=== PATIENT | female | born 1945 | race Caucasian/White ===

== ENCOUNTER → 2017-01-02 | Outpatient (CLI) | payer OTHER, MEDICARE | LOC: BMCIMAGING 08:25 | DX: Z12.31 Encounter for screening mammogram for malignant neoplasm of breast (principal) | CPT/HCPCS: G0202 ==

== ENCOUNTER → 2017-02-26 | Outpatient (CLI) | payer OTHER, MEDICARE | LOC: FIMAGING 09:27 | PROVIDERS: ATTEND Internal Medicine | DX: G31.9 Degenerative disease of nervous system, unspecified (principal); I67.82 Cerebral ischemia ==

== ENCOUNTER → 2017-08-13 | Outpatient (CLI) | payer OTHER, MEDICARE | LOC: BMCIMAGING 16:40 | PROVIDERS: ATTEND Internal Medicine Rheumatology | DX: M25.532 Pain in left wrist (principal); M25.531 Pain in right wrist ==

== ENCOUNTER → 2017-10-15 | Outpatient (CLI) | payer OTHER, MEDICARE | LOC: BMCIMAGING 13:59 | PROVIDERS: ATTEND Family Medicine | DX: M79.604 Pain in right leg (principal); M79.89 Other specified soft tissue disorders ==

== ENCOUNTER → 2018-01-20 | Outpatient (CLI) | payer OTHER, MEDICARE | LOC: BMCIMAGING 08:17 | PROVIDERS: ATTEND Internal Medicine | DX: Z12.31 Encounter for screening mammogram for malignant neoplasm of breast (principal) ==

== ENCOUNTER 2018-08-19 12:25 | Emergency (ER) | payer OTHER, MEDICARE ==
--- NOTE | 2018-08-19 13:03 | EDPHY ---
H & P Time Seen by Provider: 08/19/18 12:41 HPI/ROS: CLINICAL IMPRESSION: Left knee contusion ASSESSMENT/PLAN: 73-year-old female presents to the emergency department 6 days after falling on the left knee [place] cruise [place]. She has a closed large blister on the anterior aspect of the knee but no bleeding or otherwise open wound. Distal neurovascular exam is intact. No radiologic finding to suggest acute tibial plateau fracture, patellar flexure. Patient's blister was drained by request, JOESPH bandage placed, right treatment discussed, recommend orthopedic follow-up, warning signs return to ED sooner outlined and discharge. DIFFERENTIAL DX: Differential diagnosis includes but not limited to acute fracture, ligamentous injury, soft tissue contusion ED PROCEDURES: Procedure: Splint placement. A Joesph bandage splint to the left knee was applied by landscape technician, supervised by myself. After application of the splint I returned and re-examined the patient. The splint was adequately immobilizing the joint and distal to the splint the patient's circulation and sensation was intact. ED COURSE: CHIEF COMPLAINT: Left knee and lower leg pain HPI: This is a 73-year-old female with history of osteoarthritis who presents to the emergency department with acute left knee and lower leg pain after tripping and falling on a cruise ship 6 days ago. Patient reports she went down a small step , stepped onto an uneven surface, and fell onto the lateral aspect of the left knee and twisted the lower leg. She saw the cruise physician, apparently had an x-ray of the knee and was told nothing was wrong. It was recommended that she disembark on the [place] [facility] which she and her declined. She reports she has been icing, using naproxen, and elevating the leg for the last 36 hr. They returned home on Saturday night. She has had a previous right total knee replacement by Dr. Villegas but has not yet contacted his office because he is retiring. She reports persistent swelling to the leg. She is not on anticoagulation therapy. No reported loss of sensation to the foot or toes. She is hoping to fly to [place] on Saturday. PAST MEDICAL HISTORY: Prior right total knee replacement, hypertension, cataracts Pertinent Past Surgical History: Right total knee Social History: Nonsmoker, not anticoagulated REVIEW OF SYSTEMS: All other systems negative Constitutional: No fever, no chills Musculoskeletal: No deformity, + joint pain Skin: No rashes, color change or open wounds. Blister to left knee Neurological: No sensory loss or weakness. PHYSICAL EXAM: General Appearance: Alert, oriented, appropriate for age, cooperative, NAD, well hydrated, non-toxic appearing, VSS, no hypoxia. Neurological: Alert and oriented x 3, normal sensation and strength of extremities Skin: Warm, dry, no rashes, no nodules on palpation. Subcutaneous bruising to left knee and entire lower leg. large blister to left anterior knee. Musculoskeletal: Tender to palpation along entire left knee and lower leg. Patient is refusing to bend the knee secondary to pain. neg anterior drawer. Unable to assess Grayson test. Distal neurovascular exam intact. No open wounds MEDICAL DECISION MAKING: Patient was seen independently.Secondary supervising physician at time of evaluation was Dr. Paris. Diagnosis: Left knee contusion . New, requires workup Summary: See assessment and plan for summary of ED visit Independent visualization of images, tracing, or specimens yes. Decision to obtain medical records or history from someone other than the patient patient's Patient Progress stable . Smoking Status: Never smoked Constitutional: Initial Vital Signs Temperature (C) 36.6 C 08/19/18 12:28 Heart Rate 87 08/19/18 12:28 Respiratory Rate 18 08/19/18 12:28 Blood Pressure 185/94 H 08/19/18 12:28 O2 Sat (%) 93 08/19/18 12:28 O2 Delivery Mode Room Air Allergies/Adverse Reactions: codeine [Codeine] Allergy (Unknown, Verified 08/19/18 12:27) Home Medications: Medication Instructions Recorded Hydrochlorothiazide [HCTZ (*)] 25 mg PO DAILY 03/05/15 Acetaminophen [Tylenol ES 500 mg 1,000 mg PO DAILY PRN 01/27/16 (*)] Acyclovir [Zovirax 400 mg (*)] 400 mg PO DAILY PRN 01/27/16 Cyanocobalamin [Vitamin B12 (*)] 1,000 mcg PO DAILY 01/27/16 Escitalopram Oxalate [Lexapro 10 10 mg PO DAILY 01/27/16 MG] Estradiol [Estradiol 1 MG (*)] 1 mg PO DAILY 01/27/16 Fenofibrate [Tricor 145 mg (*)] 145 mg PO DAILY 01/27/16 Losartan Potassium [Cozaar 50 mg 50 mg PO DAILY 01/27/16 (*)] Potassium Cl [Klor-Con 20 meq (*)] 40 meq PO DAILY 01/27/16 MDM/Departure - [facility] Imaging Results: Imaging Impressions Knee X-Ray 08/19/18 12:56 Impression: 1. Tiny ossific density projecting medial to the proximal fibular metaphysis may represent an avulsion fragment of unknown chronicity. 2. Mild osteoarthrosis of the knee. Tibia/Fibula X-Ray 08/19/18 12:56 Impression: 1. Tiny ossific density projecting medial to the proximal fibular metaphysis may represent an avulsion fragment of unknown chronicity. 2. Mild osteoarthrosis of the knee. Imaging: I viewed and interpreted images myself - Depart Disposition: Home, Routine, Self-Care Clinical Impression: Left anterior knee pain Condition: Good Instructions: Knee Pain (ED) Additional Instructions: DISCHARGE INSTRUCTIONS FROM YOUR DOCTOR Thank you for visiting our emergency department today. Please keep in mind that discharge from the emergency department does not mean that there is nothing wrong - it simply means that we have not identified an emergency condition that requires further evaluation or treatment in the hospital. You should always plan to follow up with primary care for re-evaluation of your condition in the next 2-3 days. If you have been referred to a specialist, please call as soon as possible (today or tomorrow) to schedule your follow up appointment at the appropriate time. X-rays of her knee were read by the radiologist with a possible small chip avulsion fracture off the proximal fibula but otherwise unremarkable studies. Your blister was drained today and your leg was placed in an Joesph bandage. Please follow-up with your primary orthopedic provider. Return to the emergency department for worsening pain, inability to ambulate, loss of sensation to the foot or toes, fever or any other concern. People present with illnesses and injuries in different ways, and it is always possible that we have missed something. You may always return for re-evaluation if symptoms worsen or if they are not improving or if you develop new/different symptoms. Again, thank you for choosing our emergency department. We hope that you feel better. Referrals: Joi Cassidy MD [Primary Care Provider] - As per Instructions Jorge Villegas MD [Medical Doctor] - As per Instructions
[2018-08-19 14:13] VITALS: BP 152/78
== END 2018-08-19 14:11 | disposition home or self-care (01) ==
DX: S80.02XA Contusion of left knee, initial encounter (principal); M17.12 Unilateral primary osteoarthritis, left knee; W10.8XXA Fall (on) (from) other stairs and steps, initial encounter; Y92.814 Boat as the place of occurrence of the external cause; Z96.651 Presence of right artificial knee joint

== ENCOUNTER → 2018-08-21 | Outpatient (CLI) | payer OTHER, MEDICARE | LOC: BMCIMAGING 13:37 | PROVIDERS: ATTEND Internal Medicine | DX: R60.0 Localized edema (principal) ==

== ENCOUNTER → 2019-01-28 | Outpatient (CLI) | payer OTHER, MEDICARE | LOC: BMCIMAGING 08:39 | PROVIDERS: ATTEND Internal Medicine | DX: Z12.31 Encounter for screening mammogram for malignant neoplasm of breast (principal); Z80.3 Family history of malignant neoplasm of breast ==